=== PATIENT | female | born 1930 | race Caucasian/White ===

== ENCOUNTER 2017-03-11 08:47 | Inpatient (IN) | payer MEDICARE, MEDICAID ==
[~2017-03-11] VITALS: Ht 170.2 cm; Wt 77.8 kg
[2017-03-11] VITALS (7 sets, daily range): BP systolic 51–77; BP diastolic 31–45; PULSE 56–81; RESP 17–24; O2SAT 98–100
[~2017-03-11 08:47] MED LIST: ALBU18HF INH; ASPI-973 PO; CALC500T9 PO; CEPH-512 PO; LEVO150T5 PO; LIDO30CR19 TOP; LORA1TAB PO; METO25TA6 PO; NEPHVIT PO; ROPI0.252 PO; SEVE800T7 PO
--- NOTE | 2017-03-11 09:01 | ED.REPORT ---
HPI-Trauma Minor / Fall Date of Service March 11, 2017 ED Provider: Kaleb Park MD 86 year old female who is a heavy everyday smoker with a history of ESRD on hemodialysis, CHF, COPD, and HTN presents to the ER via EMS accompanied by caregiver due to altered mental status and ground level fall. Caregiver reports that patient was scheduled for dialysis this morning. When she called the patient this morning there was no answer, and she found the patient on the floor upon her arrival at the patient's residence. Patient informed her caregiver that she had fallen out of bed and had been down, unable to get up for over an hour. She denies head or neck trauma, other injures secondary to the fall, GI bleeding, and any anticoagulant use. Over the past week the patient has missed several dialysis appointments because she "didn't want to go ", which is abnormal per physician credentialing specialist. Last week she was complaining of abdominal pain and constipation. This morning she took two Ativan. Nursing Notes Stated Complaint: GLF Chief Complaint: General Complaint Nursing Notes Reviewed: Yes Allergies: Coded Allergies: ROLAND Inhibitors (Verified Allergy, Severe, Anaphylaxis, 11/26/14) Sulfa (Sulfonamide Antibiotics) (Verified Allergy, Severe, itching, 11/26/14 ) amlodipine (Verified Allergy, Severe, Rash,Itching,, 11/26/14) codeine (Verified Allergy, Severe, Shortness of Breath, 11/26/14) morphine (Verified Allergy, Severe, body feels like its on fire, 11/26/14) hydrochlorothiazide (Verified Allergy, Intermediate, Rash,Itching,, 11/26/14 ) sulfadiazine (Verified Allergy, Unknown, 08/31/16) Uncoded Allergies: chloraprep (Allergy, Unknown, 08/31/16) Scheduled Aspirin (Aspirin) 81 Mg Tablet 81 MG PO DAILY Calcium Carbonate (Tums) 500 Mg Tab.chew 1,500 MG PO TIDWM Calcium Carbonate (Tums) 500 Mg Tab.chew 1,000 MG PO HS Cephalexin (Keflex) 500 Mg Capsule 500 MG PO BID Levothyroxine (Levothyroxine) 150 Mcg Tablet 175 MCG PO DAILY Lidocaine/Prilocaine (Lidocaine-Prilocaine Cream) 30 Gm Cream..g. 1 APPLIC TOP AC dialysis to fistu Metoprolol Tartrate (Metoprolol Tartrate) 25 Mg Tablet 25 MG PO BID Sevelamer Carbonate (Renvela) 800 Mg Tablet 1,600 MG PO TIDWM Vitamin B Complex/Vit C (Elinor-Jaun Tablet) 1 Tab Tab 1 TAB PO DAILY Scheduled PRN Albuterol Sulfate (Ventolin HFA Inhaler) 200 Puff/18 Gm Inhaler 2 PUFF INH Q4 PRN PRN For Wheezing Lorazepam (Lorazepam) 1 Mg Tablet 1 MG PO before dialysis PRN PRN dialysis 30 minutes prior to dialysis Ropinirole (Ropinirole) 0.25 Mg Tablet 0.25-0.5 MG PO HS PRN PRN Restless Leg General Time Seen by MD: 08:51 Chief Complaint Fall Hx Obtained From: Patient, [employer] Arrived By: Ambulance Onset Occurred: Just prior to arrival Symptom Duration: Since onset Caused by: Accidental, Fall on ground Context: Occurred at: Home injury Similar Sx Previous: Yes Past Medical History Past Medical History ESRD on hemodialysis High cholesterol Thyroid disease GERD CHF HTN COPD Restless leg syndrome Past Surgical History Fistula Cholecystectomy Family History Noncontributory Smoking History Current Every Day Smoker, Heavy Tobacco Smoker Social History Alcohol Use: Denies alcohol use Drug Use: Denies drug use Other Social History: Lives alone, Local resident Ambulatory Status Walker Review of Systems It is difficult to obtain ROS from the patient due to altered mental status. Musculoskeletal: Denies: Back pain, Extremity pain, Joint pain, Lumbar pain, Neck pain, Thoracic pain Neurologic: Denies: Headache Complete sys rev & neg: except as marked. GI: Denies: Hematemesis, Hematochezia Physical Exam Physical Exam Notes: Initial Vital Signs Vital Signs (First) Date Time Temp Pulse Resp B/P Pulse Ox O2 Delivery O2 Flow Rate FiO2 03/11/17 08:52 36.8 66 17 65/45 98 Room Air 03/11/17 09:55 2 Initial VS: Reviewed Head / Eyes: Atraumatic, Normocephalic Extremities: Vascular intact, Neuro intact, No swelling, No tenderness General/Constitutional: Well developed Alertness: Positive: Somnolent Neck: Atraumatic, Supple, Full range of motion, No swelling, Non-tender, No midline vertebral tend ENT: Airway patent, Pharynx NL Mouth: Positive: Mucous membranes dry Blood around the mouth. Respiratory / Chest: No respiratory distress, No rales, No rhonchi, No chest tenderness, No chest wall deformity Wheezing / Retractions: Positive: Wheeze insp/exp diffuse, Wheezing moderate Cardiovascular: Heart rate NL, Regular rhythm Heart Sounds / Murmur: Positive: Murmur present... (holosystolic murmur left uper sternal border) Diffuse lower extremity edema, non-pitting, equal bilaterally. Abdomen: Atraumatic, Soft, Non-tender, No guarding, No rebound, No distention Back: Full range of motion, No midline vertebral tend Upper Extremity / MS: Full range of motion, Neurologic intact, Vascular intact Right upper extremity fistula Superficial ulcer of her left upper extremity Skin: Warm, Dry, Intact Rash / Lesion Notes: Hyperpigmented areas in lattice like configuration on her back, abdomen, bilateral upper extremities. Neurologic: Oriented X3, Speech NL, No motor deficits, No sensory deficits Rectum / Perineum: Blood - occult heme -, No gross blood Interpretation & Diagnostics Lab Results Interpretation Result Diagram: 03/11/17 1110 03/11/17 0930 Test 03/11/17 09:30 03/11/17 10:51 03/11/17 11:10 White Blood Count 6.1th/mm3 (3.8-10.1) Red Blood Count 3.53mil/mm3 (3.90-5.20) Mean Corpuscular Volume 98.0fL (81-100) Mean Corpuscular Hemoglobin 32.3pg (27.0-35.0) Mean Corpuscular Hemoglobin Concent 32.9% (32.0-37.0) Red Cell Distribution Width 16.6% (12.3-15.4) Platelet Count 95bil/L (150-400) Neutrophils (%) (Auto) 82.8% (40-74) Lymphocytes (%) (Auto) 9.0% (14-46) Monocytes (%) (Auto) 6.9% (4-12) Eosinophils (%) (Auto) 0.3% (0-5) Basophils (%) (Auto) 0.3% (0-3) Prothrombin Time 11.3sec (8.1-12.5) Prothromb Time International Ratio 1.05ratio Activated Partial Thromboplast Time 27.6sec (22.8-33.0) Sodium Level 135mEq/L (134-144) Potassium Level 3.5mEq/L (3.5-5.2) Chloride Level 94mEq/L (97-108) Carbon Dioxide Level 19mmol/L (18-29) Blood Urea Nitrogen 28mg/dL (8-27) Creatinine 4.77mg/dL (0.57-1.00) Estimat Glomerular Filtration Rate 12mL/min (>59) Glucose Level 97mg/dL (60-99) Lactic Acid Level 1.5mmol/L (0.4-2.0) Calcium Level 7.8mg/dL (8.5-10.1) Magnesium Level 1.5mg/dL (1.6-2.6) Total Bilirubin 0.6mg/dL (0.0-1.2) Aspartate Amino Transf (AST/SGOT) 13U/L (0-50) Alanine Aminotransferase (ALT/SGPT) 8U/L (0-32) Alkaline Phosphatase 57U/L (25-165) Troponin T 0.397ug/L (0.0-0.011) Total Protein 6.5g/dL (6.4-8.4) Albumin 3.5g/dL (3.4-5.0) Thyroid Stimulating Hormone (TSH) 39.140uIU/mL (0.450-4.500) Urine Color Yellow (YELLOW) Urine Appearance Turbid (CLEAR,HAZY) Urine pH 8.0 (5.0-8.0) Urine Specific Willits 1.020 (1.003-1.035) Urine Protein 300mg/dL (NEG,TRACE) Urine Glucose (UA) Negativemg/dL (NEGATIVE) Urine Ketones Negativemg/dL (NEGATIVE) Urine Occult Blood Large (NEGATIVE) Urine Nitrite Positive (NEGATIVE) Urine Bilirubin Negative (NEGATIVE) Urine Urobilinogen Normalmg/dL (NORMAL) Urine Leukocyte Esterase Moderate (NEGATIVE) Urine RBC 11-50/hpf (0-2) Urine WBC Packed/hpf (0-5) Urine Epithelial Cells Occasional/hpf (NONE-MOD) Urine Crystals None seen (NONE SEEN) Urine Bacteria Moderate/hpf (NONE-FEW) Urine Hyaline Casts None/lpf (NONE) Urine Granular Casts None seen (NONE SEEN) Urine Waxy Casts None seen (NONE SEEN) Urine Red Blood Cell Casts None seen (NONE SEEN) Urine White Blood Cell Casts None seen (NONE SEEN) Urine Mucus None seen (None Seen) Urine Trichomonas None seen (NONE SEEN) Urine Yeast None (NONE SEEN) Urinalysis Comment None Urine Culture Reflexed Indicated Hemoglobin 11.3g/dL (12.0-15.6) Hematocrit 34.8% (35.0-46.0) ECG Interpretation ECG Interpretation: Sinus rhythm, rate 66 T wave inversions in 1, avL, unchanged from previous Q waves in avR and v1, also unchanged from previous No other ST T changes Time: 09:24 Interpreted by: ED physician X-Ray Chest Interpretation Chest Xray Interpretation: IMPRESSION: Cardiomegaly and moderate vascular congestion. Superimposed viral bronchiolitis is difficult to exclude. Dictated by: Fran Bolivar M.D. on 03/11/2017 at 9:11 Approved by: Fran Bolivar M.D. on 03/11/2017 at 9:12 View: Portable, 1 view Interpretation / Wet Read by: Interpret - Radiologist CT Head Interpretation IMPRESSION: No acute intracranial process Dictated by: Huan Allen M.D. on 03/11/2017 at 9:36 Approved by: Huan Allen M.D. on 03/11/2017 at 9:38 Study: Head CT no contrast Interpretation / Wet Read by: Interpret - Radiologist Re-Eval/Medical Decision Med Decision/Clinical Course 86-year-old female history of end-stage renal disease on dialysis presenting with altered mental status. Patient with altered mental status since this morning per caregiver. She may have taken some Ativan. She has not been going to her dialysis this week. On arrival patient was altered but arousable. Her blood pressures started to drop with maps in the 30s. Urine suggestive of urosepsis. Her lactate is normal. Troponins were elevated with no EKG changes suggestive of NSTEMI. As antibiotics and heparin drip were getting started, son became involved and family decided to make her comfort measures and that this would be her wishes. She had apparently expressed this earlier. Critical care time as below. Admitted after change in goals of care on comfort measures. Source of Hx: Old records Re-Evaluation/Progress #1: Time of Eval: 10:32 Re-Evaluation/Progress Note: Patient continues to be somnolent. Discussed patient case with family members who are now present. They understand and acknowledge the severity of the patient's condition. Patient's code status is DNAR. Discussed lab and imaging results and need for admission. Family is amenable to the plan. All other questions addressed. Re-Evaluation/Progress #2: Time of Eval: 11:48 Re-Evaluation/Progress Note: Family decided comfort care after initial interventions. Consultation #1: Referral / Consult Name: Dorian Argueta MD Consulted With: Cardiology Call Returned at: 11:05 Paperhanger Supervisor: Will see patient Note: Discussed patient case with Dr. Argueta, Cardiology, who is now present in the department. Recommends echocardiogram and heparin drip. Consultation #2: Referral / Consult Name: Arpita Rubio MD Consulted With: Nephrology Call Returned at: 11:14 Note: Dr. Rubio does not recommend urgent dialysis. Consultation #3: Referral / Consult Name: William Canales DO Consulted With: Hospitalist Paperhanger Supervisor: Agrees with eval, Agrees with plan, Accepts admit Counseled Regarding: Diagnosis, Lab results, Need for admission Discharge & Departure Impression: Primary Impression: Hypotension Additional Impressions: Sepsis NSTEMI (non-ST elevated myocardial infarction) UTI (urinary tract infection) Disposition: ADMITTED TO HOSPITAL Discharge Condition All VS Reviewed: Yes Condition: Critical Referrals: Mercedes Brady MD (PCP) Crit Care Except Billable Proc Time Spent: 30-74 minutes (52) Services Performed: Patient management by me, Time spent at bedside, Reviewing test results, Reviewing imaging, Discussing patient care, Documentation in record, Time with fam/surrogate Scribe Attestation Portions of this note were transcribed by Hattie Jones. I, Dr. Park, personally performed the history, physical exam and medical decision-making; I reviewed and confirmed the accuracy of the information in the transcribed note. Signed by: Gab Burciaga, 03/11/2017 at 12:39 copies to: Mercedes Brady MD, Ben M MD March 11, 2017 09:01 HATTIE JONES March 11, 2017 09:08
[2017-03-11] MEDS ORDERED: 0.9% Sodium Chloride 500 ML IV ONE ×2 (09:13→10:20)
[2017-03-11] MEDS ORDERED: Pantoprazole 4 mg/mL 10 mL Inj IVPUSH ONE (09:15)
--- NOTE | 2017-03-11 09:40 | DRSVH ---
PROCEDURE: CT BRAIN WITHOUT CONTRAST ([id number]) INDICATIONS: altered mental status TECHNIQUE: Noncontrast 4.5 mm thick angled axial sections acquired from the foramen magnum to the vertex, with c oronal reformats. COMPARISON: [facility], CT, CT BRAIN WO CON, 08/31/2016, 13:45. FINDINGS: Image quality: Excellent. CSF spaces: Basal cisterns are patent. No extra-axial fluid collections. The ventricles are symmet kaleb in size and shape. Brain: No intracranial bleeds or masses. Unchanged right basal ganglia calcification There is cerebr al volume loss for age, with resultant ventricular and sulcal prominence. There are periventricular and deep white matter chronic small vessel ischemic changes. There is intracranial internal carotid artery atherosclerosis. Skull and face: Calvarium and visualized facial bones appear intact, without suspicious lesions. Sinuses: Visualized sinuses and mastoids are clear. IMPRESSION: No acute intracranial process Dictated by: Huan Allen M.D. on 03/11/2017 at 9:36 Approved by: Huan Allen M.D. on 03/11/2017 at 9:38
[2017-03-11 09:58] LABS: BASOPHILS % (AUTO) 0.3 % (0-3); EOSINOPHILS % (AUTO) 0.3 % (0-5); MONOCYTES % (AUTO) 6.9 % (4-12); Mean Corpuscular Hemoglobin 32.3 pg (27.0-35.0); NEUTROPHILS % (AUTO) 82.8 % (40-74); Platelet Count 95 bil/L (150-400)
[2017-03-11 10:13] LABS: INR 1.05 ratio
--- NOTE | 2017-03-11 10:14 | DRSVH ---
PROCEDURE: X-RAY CHEST ONE VIEW, PORTABLE ([id number]) INDICATIONS: cough TECHNIQUE: One view of the chest was acquired. COMPARISON: [facility], CR, XR CHEST 1VW (PORTABLE), 08/31/2016, 10:00. FINDINGS: Surgical changes and devices: None. Lungs and pleura: There is hilar prominence present. Aeration of the lungs is similar to the prior s tudy. No lobar consolidation, large effusion, or pneumothorax is evident. Mediastinum: Mediastinal contours appear normal. Heart size is mildly enlarged. There is aortic at herosclerosis. Bones and chest wall: No suspicious bony lesions. Overlying soft tissues appear unremarkable. IMPRESSION: Cardiomegaly and moderate vascular congestion. Superimposed viral bronchiolitis is difficult to excl ude. Dictated by: Fran Bolivar M.D. on 03/11/2017 at 9:11 Approved by: Fran Bolivar M.D. on 03/11/2017 at 9:12
[2017-03-11 10:35] LABS: TROPONIN T 0.397 ug/L (0.0-0.011)
[2017-03-11] MEDS ORDERED: Piperacillin-Tazo 3.375 Gm Inj 3.375 GM in Dextrose 5% Minibag Plus 50 ML IV ONE (10:45)
[2017-03-11] MEDS ORDERED: 0.9% Sodium Chloride 1,000 ML IV ONE (10:45)
[2017-03-11 10:51] LABS: Magnesium 1.5 mg/dL (1.6-2.6)
[2017-03-11 11:09] LABS: APPEARANCE,URINE TURBID (CLEAR,HAZY); COLOR,URINE YELLOW (YELLOW); OCCULT BLOOD,URINE LARGE (NEGATIVE)
[2017-03-11 11:10] LABS: UROBILINOGEN,URINE NORMAL (NORMAL)
[2017-03-11] MEDS ORDERED: Heparin 25K Unit/500mL 0.45 NS 25,000 UNIT in IV Premix 1 EACH IV ONE (11:15)
[2017-03-11] MEDS ORDERED: Heparin 5,000 Unit/mL Inj IVPUSH ONE (11:15)
[2017-03-11] MEDS ORDERED: Albuterol-Ipratropium 3 mL Inhalation Solution ONE (11:42)
[2017-03-11] MEDS ORDERED: Ondansetron 2 mg/mL 2 mL Inj IVPUSH PRN ×2 (12:55→14:35)
[2017-03-11] MEDS ORDERED: Alum-Mag Hydrox-Simeth 30 mL Suspension PO PRN (12:55)
--- NOTE | 2017-03-11 13:26 | CONS ---
[address] [address] CONSULTATION REPORT PATIENT: YIFAN MOREL : 1930 MR#: [id number] ADMIT: 03/11/2017 JOB ID: [id number] DATE OF SERVICE: 03/11/2017 CRITICAL CARE CARDIOLOGY CONSULTATION: REASON FOR CONSULT: ED physician, Dr. Manuel, asked me to see this patient regarding hypotension, fall, altered mental status. I went to the ED and saw the patient. CHIEF COMPLAINT: Had a fall. The patient is slowly responding, however, she is confused. The majority of the history I got through the current chart, reviewing old records, talking to the niece as well as the ED physician. PRESENT HISTORY: This 86-year-old pleasant female, who has a history of end-stage renal disease on hemodialysis three times a week, status post left heart catheterization in November 2014. At that time, she did not have any significant left main, LAD or circ disease with 30%-40% mid RCA disease, LV ejection fraction 55%-60% with [id number] MR based on echocardiogram done February 2015, history of essential hypertension, persistent tobacco abuse, COPD, hypothyroidism, GERD, restless legs syndrome, history of CHF was brought to the ED because of above-mentioned chief complaint. According to the niece, the patient missed dialysis a couple of times. However, yesterday she had dialysis. She was supposed to have dialysis today as well. This morning, when the caregiver went to her house, she found her on the floor. According to the patient, she fell from the bed. She denies any active chest pain or preceding palpitation or dizziness or cardiovascular symptoms. However, that history is not very reliable. In the ED the patient was found to be hypotensive. She was started on IV fluids. Cardiology consult was sought. At present, she is in emergency department. She is kind of sleeping but she is responding to commands slowly. However, she appears to be confused. She is not having any active chest pain. No obvious fever, chills. According to the nurse, her urine was very turbid and looks like she has a urinary tract infection. PAST MEDICAL HISTORY: 1. 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 2. End-stage renal disease on hemodialysis. 3. Essential hypertension. 4. Hyperlipidemia. 5. GERD. 6. History of CHF. 7. COPD. 8. Tobacco abuse. 9. Restless legs syndrome. 10. Hypothyroidism. 11. Right AV fistula. PAST SURGICAL HISTORY: 1. Cholecystectomy. 2. Right AV fistula. ALLERGIES: The patient is allergic to ROLAND INHIBITOR with anaphylaxis, SULFA, AMLODIPINE, CODEINE, MORPHINE, HYDROCHLOROTHIAZIDE, SULFADIAZINE. MEDICATION AT HOME: 1. Aspirin 81 mg daily. 2. Calcium carbonate. 3. Synthroid 150 mcg tablet, 175 mcg daily. 4. Metoprolol tartrate 25 mg b.i.d. 5. Renvela 1600 mg t.i.d. 6. Vitamin B complex. SOCIAL HISTORY: The patient is a chronic smoker. FAMILY HISTORY: Noncontributory. REVIEW OF SYSTEMS: I tried to obtain 10 point review of systems but the validity is not very reliable as she appears to be confused. PHYSICAL EXAMINATION: Blood pressure 69/35, heart rate 63, oxygen saturation on 2 L 98%. HEENT: No significant anemia or jaundice. Neck: Neck vein appears to be engorged. Chest: Bilateral diffuse rhonchi as well as some crackles at the bases. CVS: S1 appears normal. P2 appears prominent. No obvious S3-S4. Grade 2/6 ejection systolic murmur at the base. Abdomen appears to be obese. During my physical examination, I found tenderness in middle of the abdomen. It is not a rebound tenderness. Extremities: The patient has diffuse erythematous changes. 1-2+ pedal edema. Feeble distal pulses. She has a blister on the anterior aspect of left thigh and some rashes on her back on the left side. HOST COORDINATOR: As stated above. Vascular: As stated above. However, at present, no obvious critical limb ischemia. LABORATORIES: WBC 6.1, hemoglobin 11.4, platelets 95, polymorphs 82.8. INR 1.05. Sodium 135, potassium 3.5, BUN 28, creatinine 4.77. Bilirubin, AST, ALT normal. Troponin T 0.397. However, the patient has chronically elevated troponin. In November of 2014, it was 0.252. IMAGING: The patient has CT scan of her head which did not reveal any acute process. On x-ray chest, mild cardiomegaly. Aortic atherosclerosis. Moderate vascular congestion. EKG today revealed sinus rhythm with LVH with left anterior fascicular block with some nonspecific ST-T changes and QTc 481 msec which has unchanged from previous EKG. The patient had carotid Doppler in November 2010. 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 ASSESSMENT/PLAN: Profound hypotension. In the past she did not have any critical coronary artery disease. LV function was preserved. On my physical examination, she does not have any very cold clammy extremities. Clinically, no obvious pulsus paradoxus. With low blood pressure, I will expect some tachycardia. However, she is not tachycardic. Clinically, she is having bilateral wheezing. She has bilateral basal crepitations. At this point of time, she will need workup to rule out cardiac etiology as well as infectious etiology and endocrine abnormality like adrenal insufficiency. I had a long discussion with the patient's niece who is at bedside and the ED physician as well. We discussed about above-mentioned workup including echocardiogram, vasopressor support, etc. However, at present, niece told us that the patient's code status is DNR. She is talking to her brother as well who is in [place] who is the son of the patient. They are thinking about comfort care. If they decide to go forward, will recommend echocardiogram and consideration of Levophed and close hemodynamic monitoring along with serial CPK, troponin. On the EKG, I do not see any new EKG changes suggestive of significant ischemia or infarction. However, troponin abnormal which is chronically elevated in the face of end-stage renal disease. With an echocardiogram, we would also like to rule out pericardial pathology. Sage understands. However, at present, she is not interested to go forward. Thanks for the cardiology consult. TOTAL TIME SPENT: For this critical care consult including reviewing old records about 70 minutes. MARYELLEN
--- NOTE | 2017-03-11 14:23 | PCM.HPMED ---
Subjective Date of Service March 11, 2017 Primary Provider: Admitting Physician: William Canales DO Primary Care Physician: Mercedes Brady MD Attending Physician: William Canales DO Chief Complaint: Hypotension, found down History of Present Illness: 86-year-old female with significant history of tobacco abuse, end-stage renal disease with history of noncompliance with dialysis sessions missing her last 2 , CHF, COPD and hypertension presenting to the ER via EMS with altered mental status being found by caregiver on the floor with reports of being on the floor for 1 hour. Recent has not wanted to go dialysis appointments of late when discussing with her niece. Patient's first listed power of regulatory attorney is her son in [place]. Phone number [phone]. Patient was found to be hypotensive in the ER with systolics in the 60s, as she was consulted and discussions were held regarding goals of care, family decided patient should be comfort care and was admitted as such. No significant EKG findings for acute ischemia were noted, patient was taking Ativan at home prior to ground level fall at home. Upon interview, niece reaffirmed desire for comfort care and stated she is in agreement with the other POA, Terrell. Review of Systems: Review of systems unable to be obtained due to patient's mental state Allergies Coded Allergies: ROLAND Inhibitors (Verified Allergy, Severe, Anaphylaxis, 11/26/14) Sulfa (Sulfonamide Antibiotics) (Verified Allergy, Severe, itching, 11/26/14 ) amlodipine (Verified Allergy, Severe, Rash,Itching,, 11/26/14) codeine (Verified Allergy, Severe, Shortness of Breath, 11/26/14) morphine (Verified Allergy, Severe, body feels like its on fire, 11/26/14) hydrochlorothiazide (Verified Allergy, Intermediate, Rash,Itching,, 11/26/14 ) sulfadiazine (Verified Allergy, Unknown, 08/31/16) Uncoded Allergies: chloraprep (Allergy, Unknown, 08/31/16) Home Medications Aspirin (Aspirin) 81 Mg Tablet 81 MG PO DAILY Calcium Carbonate (Tums) 500 Mg Tab.chew 1,500 MG PO TIDWM Calcium Carbonate (Tums) 500 Mg Tab.chew 1,000 MG PO HS Cephalexin (Keflex) 500 Mg Capsule 500 MG PO BID Levothyroxine (Levothyroxine) 150 Mcg Tablet 175 MCG PO DAILY Lidocaine/Prilocaine (Lidocaine-Prilocaine Cream) 30 Gm Cream..g. 1 APPLIC TOP AC dialysis to fistu Metoprolol Tartrate (Metoprolol Tartrate) 25 Mg Tablet 25 MG PO BID Sevelamer Carbonate (Renvela) 800 Mg Tablet 1,600 MG PO TIDWM Vitamin B Complex/Vit C (Elinor-Jaun Tablet) 1 Tab Tab 1 TAB PO DAILY PMH ESRD on hemodialysis High cholesterol Thyroid disease GERD CHF HTN COPD Restless leg syndrome Surgical History Fistula Cholecystectomy Family History Noncontributory Social History Hx Alcohol Use: No Hx Substance Use: No Hx Tobacco Use: Yes (Between 5-10 cigarettes daily) Smoking Status: Current Every Day Smoker, Heavy Tobacco Smoker Exam Vital Signs Vital Sign - Last Date Time Temp Pulse Resp B/P Pulse Ox O2 Delivery O2 Flow Rate FiO2 03/11/17 13:31 36.1 65 20 72/39 100 Nasal Cannula 2.00 Exam Gen.: Unarousable, sleeping/snoring, no acute distress HEENT: Normocephalic/atraumatic, pupils equal round react to light and accommodation,EOMI, Anicteric sclera, No mucosal ulcerations Neck: No JVD, lymphadenopathy, no thyromegaly Cardiovascular: Systolic murmur at left upper sternal border, regular rate Respiratory: Coarse breath sounds bilaterally, intermittent wheezes in upper lobes bilaterally GI: Soft, nontender to palpation no masses no hepatosplenomegaly Extremities: 2+ edema bilaterally, show me his cool to touch, decreased pulses at health pedis Neurologic, unable to evaluate Psych: Unarousable, unable to evaluate Lab and Diagnostics Result Diagram: 03/11/17 1110 03/11/17 0930 X-Rays, CTs and MRIs Negative head CT Chest ray with evidence of pulmonary vascular congestion 12-lead ECG Sinus rhythm, No acute ischemia, left axis deviation with early repolarization noted Cardiac Echo Impressions Deferred Assessment & Plan 86-year-old female was ground-level fall and altered mental status reported to be found down for approximately an hour, likely longer with significant hypotension on admission with systolics in the 60s now increased his 70s. Family wanting to pursue comfort care at this time without further infectious/ cardiac/pulmonary workup or aggressive interventions Altered mental status, possibly secondary to missed dialysis sessions albeit no significant x-ray abnormalities but worsened with likely underlying pulmonary edema causing hypoxia plus or minus aspiration and exacerbated by hypotension -We will consult hospice services -Morphine, oxygen, scopolamine, Ativan when necessary -Appreciate critical care evaluation, we will defer further imaging and ultrasound/echo given goals of care Chronic medical conditions: ESRD on hemodialysis High cholesterol Thyroid disease GERD CHF HTN COPD Restless leg syndrome CODE STATUS DO NOT RESUSCITATE Pain Evaluation: Adequate Pain Control VTE Prophylaxis: Other (Comfort Care only) Resuscitation Status: DNR/DNI:Do Not Resuscitate/Intubate Time spent 40 minutes spent with admission, coordination of care and patient management. William Canales DO March 11, 2017 14:23
[2017-03-11] MEDS ORDERED: MetoCLOpramide 5 mg/mL 2 mL Inj IVPUSH PRN (14:35)
--- NOTE | 2017-03-11 17:40 | NUR ---
Admit Pt admitted to [facility] from ER at around 1500ish. Family at the bedside. MD paged and rounded. Pt pretty somulent and moans when turning. BP low at 51/31 and paged. HR 50's, Irregular breathing at 18 on 2L NC 100%. Admit completed in the ER by admit RN.
[2017-03-12 00:17] VITALS: BP 78/48; PULSE 67; RESP 18; O2SAT 98
--- NOTE | 2017-03-12 04:58 | NUR ---
mentation / skin Rousable to verbal stimuli and sternal rub, falls back asleep quickly. by mid shift patient responding to verbal stimuli and opening eyes. Answered "hospital" when asked if she knew where she was. Opens eyes for a few seconds and falls back asleep. Denies pain/discomfort. Frequent turning thru the NOC, elbows, heels, buttocks, back are all red, non-blanchable. positioned side to side w/ pillows for support. Left thigh w/ 1 open area (dry blister) and 1 intact blister. Wearing attends, has not voided, does not make much urine per her granddaughter who was visiting at bedside. skin care provided, oral care for dry mucosa. continues w/ NPO status. chin hair shaved and face washed. desats to mid 80's w/ turning in bed. recovers quickly. cpox in place. b/p remains low 77/41. CTM for changes.
[2017-03-12 05:40] VITALS: BP 70/47; PULSE 71; RESP 18; O2SAT 98
--- NOTE | 2017-03-12 08:32 | PCM.CONPAL ---
Date of Service March 12, 2017 Date of Hospital Admission: March 11, 2017 at 12:30 Pt History History of Present Illness 86-year-old female with significant history of tobacco abuse, end-stage renal disease with history of noncompliance with dialysis sessions missing her last 2 , CHF, COPD and hypertension presenting to the ER via EMS with altered mental status being found by caregiver on the floor with reports of being on the floor for 1 hour. Recent has not wanted to go dialysis appointments of late when discussing with her niece. Patient's first listed power of real estate associate attorney is her son in [place]. Phone number [phone]. Patient was found to be hypotensive in the ER with systolics in the 60s, as she was consulted and discussions were held regarding goals of care, family decided patient should be comfort care and was admitted as such. No significant EKG findings for acute ischemia were noted, patient was taking Ativan at home prior to ground level fall at home. Upon interview, niece reaffirmed desire for comfort care and stated she is in agreement with the other POA, Terrell. Past Medical History Significant PMH Noted: 1. 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 2. End-stage renal disease on hemodialysis. 3. Essential hypertension. 4. Hyperlipidemia. 5. GERD. 6. History of CHF. 7. COPD. 8. Tobacco abuse. 9. Restless legs syndrome. 10. Hypothyroidism. 11. Right AV fistula. PAST SURGICAL HISTORY: 1. Cholecystectomy. 2. Right AV fistula. ALLERGIES: The patient is allergic to ROLAND INHIBITOR with anaphylaxis, SULFA, AMLODIPINE, CODEINE, MORPHINE, HYDROCHLOROTHIAZIDE, SULFADIAZINE. SOCIAL HISTORY: The patient is a chronic smoker. FAMILY HISTORY: Noncontributory. Medications Current Medications: Current Medications Al Hydrox/Mg Hydrox/Simethicone 30 ml Q6 PRN PO; Start 03/11/17 at 12:55; Stop 03/11/17 at 14:41; Status DC Ondansetron HCl Dose range: 4 mg to 8 mg Q4H PRN IVPUSH; Start 03/11/17 at 12: 55; Stop 03/11/17 at 14:40; Status DC Acetaminophen 975 mg Q6H PRN PO; Start 03/11/17 at 12:55; Stop 03/11/17 at 14: 41; Status DC Metoclopramide HCl 5 mg Q6H PRN IVPUSH; Start 03/11/17 at 14:35 Ondansetron HCl Dose Range: 4 mg to 8 mg Q4H PRN IVPUSH; Start 03/11/17 at 14: 35 Diphenhydramine HCl Dose Range: 12.5 mg... Q4H PRN IVPUSH; Start 03/11/17 at 14 :35 Hydromorphone HCl 1 mg Q2H PRN IVPUSH; Start 03/11/17 at 14:35 Scopolamine 1.5 mg Q72H PRN TOPICAL; Start 03/11/17 at 14:35 Scheduled Aspirin (Aspirin) 81 Mg Tablet 81 MG PO DAILY Calcium Carbonate (Tums) 500 Mg Tab.chew 1,500 MG PO TIDWM Calcium Carbonate (Tums) 500 Mg Tab.chew 1,000 MG PO HS Cephalexin (Keflex) 500 Mg Capsule 500 MG PO BID Levothyroxine (Levothyroxine) 150 Mcg Tablet 175 MCG PO DAILY Lidocaine/Prilocaine (Lidocaine-Prilocaine Cream) 30 Gm Cream..g. 1 APPLIC TOP AC dialysis to fistu Metoprolol Tartrate (Metoprolol Tartrate) 25 Mg Tablet 25 MG PO BID Sevelamer Carbonate (Renvela) 800 Mg Tablet 1,600 MG PO TIDWM Vitamin B Complex/Vit C (Elinor-Jaun Tablet) 1 Tab Tab 1 TAB PO DAILY Scheduled PRN Albuterol Sulfate (Ventolin HFA Inhaler) 200 Puff/18 Gm Inhaler 2 PUFF INH Q4 PRN PRN For Wheezing Lorazepam (Lorazepam) 1 Mg Tablet 1 MG PO before dialysis PRN PRN dialysis 30 minutes prior to dialysis Ropinirole (Ropinirole) 0.25 Mg Tablet 0.25-0.5 MG PO HS PRN PRN Restless Leg Objective Findings Exam Vital Sign - Last Date Time Temp Pulse Resp B/P Pulse Ox O2 Delivery O2 Flow Rate FiO2 03/12/17 05:40 36.4 71 18 70/47 98 Nasal Cannula 2.00 Intake and Output 03/11/17 03/11/17 03/12/17 Cumulative From/Thru 15:00 23:00 07:00 03/10/17 20:00 - 03/12/17 06:31 Intake Total 2000 ml 0 ml 0 ml 2000 ml Output Total 0 ml 0 ml 0 ml Balance 2000 ml 0 ml 0 ml 2000 ml Intake Oral 0 ml 0 ml 0 ml IV Total 2000 ml 2000 ml Output Urine Total 0 ml 0 ml 0 ml Lab/Diagnostics Lab and Imaging results reviewed in detail in EMR. Time spent Total time [ ] minutes; >50% face to face with patient and/or family, providing counselling regarding plans and recommendations, and in care coordination with his/her medical teams. I also spent an additional [ ] minutes counseling for advanced care planning with the patient/the patients family/the surrogate decision maker. Saskia Pedroza MD March 12, 2017 08:32
--- NOTE | 2017-03-12 10:22 | PCM.PNMED ---
Subjective Date of Service March 12, 2017 Subjective Patient with systolics in the 70s overnight, moderately more alert this morning responding with mumbling to my questions. Denies pain. Appreciate particular recommendations., Son Terrell acosta POA has been contacted by myself today and will be flying here tomorrow from [facility]. He is hoping to get an update from the medical team tomorrow as well. Exam Vital Signs Vital Sign - Last Date Time Temp Pulse Resp B/P Pulse Ox O2 Delivery O2 Flow Rate FiO2 03/12/17 05:40 36.4 71 18 70/47 98 Nasal Cannula 2.00 Intake and Output 03/11/17 03/11/17 03/12/17 Cumulative From/Thru 15:00 23:00 07:00 03/10/17 20:00 - 03/12/17 06:31 Intake Total 2000 ml 0 ml 0 ml 2000 ml Output Total 0 ml 0 ml 0 ml Balance 2000 ml 0 ml 0 ml 2000 ml Intake Oral 0 ml 0 ml 0 ml IV Total 2000 ml 2000 ml Output Urine Total 0 ml 0 ml 0 ml Exam Gen.: Unarousable, sleeping/snoring, no acute distress HEENT: Normocephalic/atraumatic, pupils equal round react to light and accommodation,EOMI, Anicteric sclera, No mucosal ulcerations Neck: No JVD, lymphadenopathy, no thyromegaly Cardiovascular: Systolic murmur at left upper sternal border, regular rate Respiratory: Coarse breath sounds bilaterally, intermittent wheezes in upper lobes bilaterally GI: Soft, nontender to palpation no masses no hepatosplenomegaly Extremities: 2+ edema bilaterally, show me his cool to touch, decreased pulses at health pedis Neurologic, unable to evaluate Psych: Unarousable, unable to evaluate IVs and Medications Medications Reviewed: Medications were reviewed in detail Lab and Diagnostics Result Diagram: 03/11/17 1110 03/11/17 0930 X-Rays, CTs and MRIs Negative head CT Chest ray with evidence of pulmonary vascular congestion 12-lead ECG Sinus rhythm, No acute ischemia, left axis deviation with early repolarization noted Cardiac Echo Impressions Deferred Assessment & Plan 86-year-old female was ground-level fall and altered mental status reported to be found down for approximately an hour, likely longer with significant hypotension on admission with systolics in the 60s now increased his 70s. Family wanting to pursue comfort care at this time without further infectious/ cardiac/pulmonary workup or aggressive interventions Altered mental status, possibly secondary to missed dialysis sessions albeit no significant x-ray abnormalities but worsened with likely underlying pulmonary edema causing hypoxia plus or minus aspiration and exacerbated by hypotension -consult hospice services - recs appreciated -Morphine, oxygen, scopolamine, Ativan when necessary -Appreciate critical care evaluation, we will defer further imaging and ultrasound/echo given goals of care -Family updated today, son Domingo Tejada phone: [phone] Chronic medical conditions: ESRD on hemodialysis High cholesterol Thyroid disease GERD CHF HTN COPD Restless leg syndrome CODE STATUS DO NOT RESUSCITATE VTE Prophylaxis: Other (Comfort Care only) VTE Mechanical Devices: Intermittant Pneumatic CD Resuscitation Status: DNR/DNI:Do Not Resuscitate/Intubate Time spent 30 minutes spent with eval and mgmt William Canales DO March 12, 2017 10:21
--- NOTE | 2017-03-12 11:21 | NUR ---
Palliative Care Palliative Care received order from Dr Canales 03/12/17 to assist with goals of care. Patient is an 86 year old woman who was admitted 03/11/17. Miguel Liam (son/DPOA) [phone] Bailee Coleman (niece) [phone] Palliative Care to follow. Maribel Hedrick
[2017-03-12] MEDS ORDERED: Haloperidol 5 mg/mL Inj IVPUSH PRN (12:15)
--- NOTE | 2017-03-12 12:38 | PCM.CONPAL ---
Date of Service March 12, 2017 Date of Hospital Admission: March 11, 2017 at 12:30 Date of Palliative Consult: March 12, 2017 Requesting Provider: William Canales DO Reason Palliative Care Consult: Goals of Care Discussion Hospital Unit @time of consult: Orthopedic/Surgical Care Palliative Care Recommendation Summary of palliative recommendations: -Symptom management (Pain/other) EOL discussion- questions answered re goals, what to expect and sx management. Her son is on his way here to see her. Decision to discontinue dialysis-unclear if patient really understands but she states she agrees with this and asks to leave her be. Hypotension with possible sepsis. She has remained remarkably stable for 6 hours. she is comfortable flat in bed. Comfort meds are ordered. Diet liberalized if she should be interested. Reviewed with CM/SS-she may within the next 24 hour. If there is evidence of stability of VS She may be transferred to ECF with eventual onboarding of hospice when they are able to support her. Based on minimal UO and minimal PO intake if this is not sepsis --life expectancy may be more in range of 1-2 weeks. -DPOA/Advanced Directives/POLST--POLST completed to reflect DNR/DNI, comfort DPOAHC available in chart. -Family/emotional support-very good support from her niece. She has good insight due to the loss of her parents within the past 2 yrs. -Spiritual support-has been visited by her airport ramp supervisor. This was also helpful for her niece. Problems: End of Life Preferences DNR/DNI/comfort Disposition probably will here-ECF is also an option if she remains stable. Resuscitation Status Resuscitation Status: DNR/DNI:Do Not Resuscitate/Intubate POLST Updates/Changes Artificially Admin Nutrition: No Artifical Nutrition by Tube POLST Discussed with: Health Care Agent (DPOAHC) POLST Review Outcome: New Form Completed . Advanced Care Planning Address: POLST, Comfort care Pt History History of Present Illness 86-year-old female with significant history of tobacco abuse, end-stage renal disease with history of noncompliance with dialysis sessions missing her last 2 , CHF, COPD and hypertension presenting to the ER via EMS with altered mental status being found by caregiver on the floor with reports of being on the floor for 1 hour. Recent has not wanted to go dialysis appointments of late when discussing with her niece. Patient's first listed power of banking attorney is her son in [place], [place]. Phone number [phone]. Patient was found to be hypotensive in the ER with systolics in the 60s, as she was consulted and discussions were held regarding goals of care, family decided patient should be comfort care and was admitted as such. No significant EKG findings for acute ischemia were noted, patient was taking Ativan at home prior to ground level fall at home. Upon interview, niece reaffirmed desire for comfort care and stated she is in agreement with the other POA, Terrell. History and discussion with Kelly Coleman her niece who has been her main support.She has a CG who takes her to dialysis 3 days a week. Gradual decline in status over the last 1-2 yrs but more acutely in the past 3 months. She has had increasing confusion- out on scooter to [employer] in middle of the night, one time out in her underwear, refusing Meals on Wheels and eating potato chips soda and cheezwiz. She continues to smoke and declines ever going to facility due to restrictions on her just staying in bed watching TV and smoking. She has been spending more time in bed. She has been missing dialysis- for a full week 2 wks ago-no SOB developing. Niece would describe her quality of life as very poor at this point. Having incont of bladder and bowel but refuses depends and doesn't recognize the disaster of her environment. Past Medical History Significant PMH Noted: Past Medical History Significant PMH Noted: 1. Noncritical CAD based on left heart catheterization done in November 2014 with 30%-50% mid RCA, [id number] MR, LV ejection fraction 55%-60%. 2. End-stage renal disease on hemodialysis. 3. Essential hypertension. 4. Hyperlipidemia. 5. GERD. 6. History of CHF. 7. COPD. 8. Tobacco abuse. 9. Restless legs syndrome. 10. Hypothyroidism. 11. Right AV fistula. 12. ASPVD with erica carotid ds 13. Thrombocytopenia/chronic anemia 14. DM2 PAST SURGICAL HISTORY: 1. Cholecystectomy. 2. Right AV fistula. ALLERGIES: The patient is allergic to ROLAND INHIBITOR with anaphylaxis, SULFA, AMLODIPINE, CODEINE, MORPHINE, HYDROCHLOROTHIAZIDE, SULFADIAZINE. SOCIAL HISTORY: The patient is a chronic smoker-ongoing lives in [facility] with assist of CG and her niece coordinating FMHX Brother last yr with stopping dialysis for ESRD Social History Occupation: retired Spiritual Support Spiritual Support received visit from the today Responsive Patient Symptoms Pain (current): None Tiredness/Fatigue: Moderate Nausea: None Depression: None Anxiety: None Drowsiness/Sleepiness: Moderate Shortness of Breath: None Palliative Performance Scale PPS Patient Status: Current PPS Ambulation: Totally Bed PPS Activity: Unable to do any activity PPS Self-Care: Total Care PPS Intake: Minimal to sips PPS Conscious Level: Full or drowsey, +/- confusion Performance Scale: 20% Allergy Allergies Reviewed: Yes Medications Current Medications: Current Medications Al Hydrox/Mg Hydrox/Simethicone 30 ml Q6 PRN PO; Start 03/11/17 at 12:55; Stop 03/11/17 at 14:41; Status DC Ondansetron HCl Dose range: 4 mg to 8 mg Q4H PRN IVPUSH; Start 03/11/17 at 12: 55; Stop 03/11/17 at 14:40; Status DC Acetaminophen 975 mg Q6H PRN PO; Start 03/11/17 at 12:55; Stop 03/11/17 at 14: 41; Status DC Metoclopramide HCl 5 mg Q6H PRN IVPUSH; Start 03/11/17 at 14:35 Ondansetron HCl Dose Range: 4 mg to 8 mg Q4H PRN IVPUSH; Start 03/11/17 at 14: 35 Diphenhydramine HCl Dose Range: 12.5 mg... Q4H PRN IVPUSH; Start 03/11/17 at 14 :35; Stop 03/12/17 at 12:19; Status DC Hydromorphone HCl 1 mg Q2H PRN IVPUSH; Start 03/11/17 at 14:35 Scopolamine 1.5 mg Q72H PRN TOPICAL; Start 03/11/17 at 14:35 Haloperidol Lactate comfort care Q4 PRN IVPUSH; Start 03/12/17 at 12:15; Status UNV Scheduled Aspirin (Aspirin) 81 Mg Tablet 81 MG PO DAILY Calcium Carbonate (Tums) 500 Mg Tab.chew 1,500 MG PO TIDWM Calcium Carbonate (Tums) 500 Mg Tab.chew 1,000 MG PO HS Cephalexin (Keflex) 500 Mg Capsule 500 MG PO BID Levothyroxine (Levothyroxine) 150 Mcg Tablet 175 MCG PO DAILY Lidocaine/Prilocaine (Lidocaine-Prilocaine Cream) 30 Gm Cream..g. 1 APPLIC TOP AC dialysis to fistu Metoprolol Tartrate (Metoprolol Tartrate) 25 Mg Tablet 25 MG PO BID Sevelamer Carbonate (Renvela) 800 Mg Tablet 1,600 MG PO TIDWM Vitamin B Complex/Vit C (Elinor-Jaun Tablet) 1 Tab Tab 1 TAB PO DAILY Scheduled PRN Albuterol Sulfate (Ventolin HFA Inhaler) 200 Puff/18 Gm Inhaler 2 PUFF INH Q4 PRN PRN For Wheezing Lorazepam (Lorazepam) 1 Mg Tablet 1 MG PO before dialysis PRN PRN dialysis 30 minutes prior to dialysis Ropinirole (Ropinirole) 0.25 Mg Tablet 0.25-0.5 MG PO HS PRN PRN Restless Leg Objective Findings Exam Vital Sign - Last Date Time Temp Pulse Resp B/P Pulse Ox O2 Delivery O2 Flow Rate FiO2 03/12/17 05:40 36.4 71 18 70/47 98 Nasal Cannula 2.00 Intake and Output 03/11/17 03/11/17 03/12/17 Cumulative From/Thru 15:00 23:00 07:00 03/10/17 20:00 - 03/12/17 06:31 Intake Total 2000 ml 0 ml 0 ml 2000 ml Output Total 0 ml 0 ml 0 ml Balance 2000 ml 0 ml 0 ml 2000 ml Intake Oral 0 ml 0 ml 0 ml IV Total 2000 ml 2000 ml Output Urine Total 0 ml 0 ml 0 ml General: Minimally responsive, Other (denies pain or SOB but brow is furrowed) HEENT: Scleral Anicteric Heart: Regular Rate/Rhythm Lungs: Diminished (shallow- barely ) Abdomen: Soft Neuro: Other (barely arousable but denies pain) Lab/Diagnostics Lab and Imaging results reviewed in detail in EMR. CR 4.77 Patient/Family Conference Members Present Family Members Present patient and niece Medical Team Members Present? Melquiades MARTELL PC Discussion/Goals of Care Discussion FAMILY UNDERSTANDING OF DISEASE: Kelly Coleman who is her niece but has been her main support and coordinator states that due to her poor QOL over the past yr in discussion with patient's son-their decision is for comfort care. She feels this decision is in line with her recent progressive refusal of care, med noncompliance and deteriorating mental status with confusion etc. Pt had refused any alternative to care and support. she was a DNR/DNI DISEASE PROGRESSION/EVIDENCE OF DECLINE: SYMPTOM BURDEN: Pt denies pain or SOB GOALS: HOPES/WORRIES: Bailee requests comfort and feels that she is. Time spent Total time 50 minutes; >50% face to face with patient and/or family, providing counselling regarding plans and recommendations, and in care coordination with his/her medical teams. counseling with niece, coordination with nsg staff, med management I also spent an additional [ ] minutes counseling for advanced care planning with the patient/the patients family/the surrogate decision maker. copies to: Mercedes Brady MD, Deborah A MD March 12, 2017 12:38
[2017-03-12 14:05] VITALS: BP 77/44; PULSE 69; RESP 14; O2SAT 99
--- NOTE | 2017-03-12 14:29 | NUR ---
Palliative care note D/A: Case discussed today in [facility] and PC rounds. Post rounds, met with pt RN who indicates that pt bahman has expressed an interest in being part of discussion with PC. Phone call to bahman Bailee at [phone] [place] [address] [place] and can be here in a few minutes. Arrange for Bailee to meet with Dr. Kaur in consult at [phone]. P: Palliative care to follow. Lisa MAURO, [facility]. Addendum: 03/12/17 at 1435 by SULY BRITTON SS PC note amendment Msg left for Bailee in dialysis today regarding PC consult and comfort care. Lisa MAURO< [facility]
[2017-03-12] MEDS: HYDROmorphone 1 mg/mL Inj IVPUSH PRN ×2 (16:00→21:16)
--- NOTE | 2017-03-12 17:05 | NUR ---
Social Work- Initial Assessment Data: See Initial Assessment. Pt is a 86 year old female admitted 03/11/17 for hypotension, sepsis, N-STEMI, UTI per H&P. Palliative care is following pt. Per Palliative Care MD, pt may while hospitalized this weekend. Pt's insurance is [facility] and [facility] Supp. Pt's PCP is Mercedes Brady MD. Pt's DPOA is mirta Wheeler [phone]. Pt's re-admit risk score is 4. Pt is on comfort measures at this time. Pt is not able to participate in the assessment, JANELLE spoke with mirta Rivera [phone] by phone regarding discharge plan, SW role explained. Pt resides at [facility] in [place] where she was receiving assistance with ADLs from her [employer] caregiving. Per Miguel, pt has approximately 20 hours of caregiving through [employer]. Pt's caregiving is Kaylie Hagen, [employer] is Lida Paz. Pt has no history of HH or SNF. Pt has no LTC or VA benefits. Pt uses an electric chair at baseline. Pt does not drive. JANELLE spoke with Miguel regarding potential discharge planning, briefly discussed hospice options including private pay SNF, respite at assisted living, and home with private pay caregivers. Miguel is flying to [facility] Sat evening, eager to speak with JANELLE about hospice at that time. JANELLE discussed potential for [facility] on Wednesday, Miguel agreeable to this. SW to follow up with [facility] regarding this [facility]. Of Note: Per discussions with admissions at [facility], hospice will not be able to open until Wednesday afternoon. JANELLE spoke with Bailee, pt's niece, at bedside regarding hospice and potential discharge planning needs, SW role explained. Bailee is knowledgeable about hospice, agreeable to considering hospice options throughout pt's clinical course. SW to follow up with discharge planning needs including hospice coordination with Miguel and Bailee throughout this hospitalization. SW will continue to follow. Assessment: Pt who is comfort care at this time. Plan: Pt may this weekend in the hospital. Pt's DPOA Miguel and Bailee agreeable to hospice [facility] and further discharge planning needs as pt's clinical course progresses. SW to follow up with discharge planning needs including hospice coordination with Miguel and Bailee throughout this hospitalization. SW will continue to follow. Sully Esteban, DISTRICT MANAGER POSTAL SERVICE Addendum: 03/12/17 at 1715 by HEBER ESTEBAN SS Amended: Links added.
--- NOTE | 2017-03-12 18:15 | NUR ---
Turning Patient turned Q2H and for comfort this shift. Patient responsive to verbal cues, often with one or two word responses. Care is ongoing.
[2017-03-12 20:18] VITALS: BP 65/38; PULSE 67; RESP 12; O2SAT 100
[2017-03-13] MEDS: HYDROmorphone 1 mg/mL Inj IVPUSH PRN ×2 (00:07→06:14)
--- NOTE | 2017-03-13 02:12 | NUR ---
pain - respiratory patient has furrowed brow at times. responds at times to tactile stimuli breathing irregular. 93% 3 liters nc for comfort. medicated with dilaudid 1/2mg slow iv push as documented patient turned and repositioned per comfort. care ongoing
[2017-03-13 08:58] VITALS: PULSE 59; RESP 8; O2SAT 97
--- NOTE | 2017-03-13 12:30 | NUR ---
Pt. at about 1230, family was made aware, MD Le, and appropriate personal where called at this time following the authorization for release of body form. Niece and grandniece are at Pts bedside, at this time awaiting on sons arrival from out of state to finish the rest of the authorization for release of body form.
--- NOTE | 2017-03-13 13:09 | PCM.DC.MED ---
Discharge Summary Date of Service March 13, 2017 Dates of Hospitalization Date of Hospital Admission March 11, 2017 at 12:30 Date of Discharge: March 13, 2017 Providers: Admitting Physician: William Canales DO Primary Care Physician: Mercedes Brady MD Attending Physician: William Canales DO Diagnosis at Time of Discharge Diagnosis at Time of Discharge Altered mental status, possibly secondary to missed dialysis sessions albeit no significant x-ray abnormalities but worsened with likely underlying pulmonary edema causing hypoxia ESRD on hemodialysis High cholesterol Thyroid disease GERD CHF HTN COPD Restless leg syndrome Consultations RUSTICAL CARE CARDIOLOGY CONSULTATION: REASON FOR CONSULT: ED physician, Dr. Manuel, asked me to see this patient regarding hypotension, fall, altered mental status. I went to the ED and saw the patient. CHIEF COMPLAINT: Had a fall. The patient is slowly responding, however, she is confused. The majority of the history I got through the current chart, reviewing old records, talking to the niece as well as the ED physician. PRESENT HISTORY: This 86-year-old pleasant female, who has a history of end-stage renal disease on hemodialysis three times a week, status post left heart catheterization in November 2014. At that time, she did not have any significant left main, LAD or circ disease with 30%-40% mid RCA disease, LV ejection fraction 55%-60% with [id number]-[id number]-[id number] MR based on echocardiogram done February 2015, history of essential hypertension, persistent tobacco abuse, COPD, hypothyroidism, GERD, restless legs syndrome, history of CHF was brought to the ED because of above-mentioned chief complaint. According to the niece, the patient missed dialysis a couple of times. However, yesterday she had dialysis. She was supposed to have dialysis today as well. This morning, when the caregiver went to her house, she found her on the floor. According to the patient, she fell from the bed. She denies any active chest pain or preceding palpitation or dizziness or cardiovascular symptoms. However, that history is not very reliable. In the ED the patient was found to be hypotensive. She was started on IV fluids. Cardiology consult was sought. At present, she is in emergency department. She is kind of sleeping but she is responding to commands slowly. However, she appears to be confused. She is not having any active chest pain. No obvious fever, chills. According to the nurse, her urine was very turbid and looks like she has a urinary tract infection. PAST MEDICAL HISTORY: 1. 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 2. End-stage renal disease on hemodialysis. 3. Essential hypertension. 4. Hyperlipidemia. 5. GERD. 6. History of CHF. 7. COPD. 8. Tobacco abuse. 9. Restless legs syndrome. 10. Hypothyroidism. 11. Right AV fistula. PAST SURGICAL HISTORY: 1. Cholecystectomy. 2. Right AV fistula. ALLERGIES: The patient is allergic to ROLAND INHIBITOR with anaphylaxis, SULFA, AMLODIPINE, CODEINE, MORPHINE, HYDROCHLOROTHIAZIDE, SULFADIAZINE. MEDICATION AT HOME: 1. Aspirin 81 mg daily. 2. Calcium carbonate. 3. Synthroid 150 mcg tablet, 175 mcg daily. 4. Metoprolol tartrate 25 mg b.i.d. 5. Renvela 1600 mg t.i.d. 6. Vitamin B complex. SOCIAL HISTORY: The patient is a chronic smoker. FAMILY HISTORY: Noncontributory. REVIEW OF SYSTEMS: I tried to obtain 10 point review of systems but the validity is not very reliable as she appears to be confused. PHYSICAL EXAMINATION: Blood pressure 69/35, heart rate 63, oxygen saturation on 2 L 98%. HEENT: No significant anemia or jaundice. Neck: Neck vein appears to be engorged. Chest: Bilateral diffuse rhonchi as well as some crackles at the bases. CVS: S1 appears normal. P2 appears prominent. No obvious S3-S4. Grade 2/6 ejection systolic murmur at the base. Abdomen appears to be obese. During my physical examination, I found tenderness in middle of the abdomen. It is not a rebound tenderness. Extremities: The patient has diffuse erythematous changes. 1-2+ pedal edema. Feeble distal pulses. She has a blister on the anterior aspect of left thigh and some rashes on her back on the left side. SR. OPERATIONS MANAGER: As stated above. Vascular: As stated above. However, at present, no obvious critical limb ischemia. LABORATORIES: WBC 6.1, hemoglobin 11.4, platelets 95, polymorphs 82.8. INR 1.05. Sodium 135, potassium 3.5, BUN 28, creatinine 4.77. Bilirubin, AST, ALT normal. Troponin T 0.397. However, the patient has chronically elevated troponin. In November of 2014, it was 0.252. IMAGING: The patient has CT scan of her head which did not reveal any acute process. On x-ray chest, mild cardiomegaly. Aortic atherosclerosis. Moderate vascular congestion. EKG today revealed sinus rhythm with LVH with left anterior fascicular block with some nonspecific ST-T changes and QTc 481 msec which has unchanged from previous EKG. The patient had carotid Doppler in November 2010. 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 ASSESSMENT/PLAN: Profound hypotension. In the past she did not have any critical coronary artery disease. LV function was preserved. On my physical examination, she does not have any very cold clammy extremities. Clinically, no obvious pulsus paradoxus. With low blood pressure, I will expect some tachycardia. However, she is not tachycardic. Clinically, she is having bilateral wheezing. She has bilateral basal crepitations. At this point of time, she will need workup to rule out cardiac etiology as well as infectious etiology and endocrine abnormality like adrenal insufficiency. I had a long discussion with the patient's niece who is at bedside and the ED physician as well. We discussed about above-mentioned workup including echocardiogram, vasopressor support, etc. However, at present, niece told us that the patient's code status is DNR. She is talking to her brother as well who is in [place] who is the son of the patient. They are thinking about comfort care. If they decide to go forward, will recommend echocardiogram in consideration of Levophed and close hemodynamic monitoring along with serial CPK, troponin. On the EKG, I do not see any new EKG changes suggestive of significant ischemia or infarction. However, troponin abnormal which is chronically elevated in the face of end-stage renal disease. With an echocardiogram, we would also like to rule out pericardial pathology. Niece understands. However, at present, she is not interested to go forward. Thanks for the cardiology consult. TOTAL TIME SPENT: For this critical care consult including reviewing old records about 70 minutes. Dorian Argueta MD 03/11/17 1219 Pt History History of Present Illness 86-year-old female with significant history of tobacco abuse, end-stage renal disease with history of noncompliance with dialysis sessions missing her last 2 , CHF, COPD and hypertension presenting to the ER via EMS with altered mental status being found by caregiver on the floor with reports of being on the floor for 1 hour. Recent has not wanted to go dialysis appointments of late when discussing with her niece. Patient's first listed power of global manager is her son in [place]. Phone number [phone]. Patient was found to be hypotensive in the ER with systolics in the 60s, as she was consulted and discussions were held regarding goals of care, family decided patient should be comfort care and was admitted as such. No significant EKG findings for acute ischemia were noted, patient was taking Ativan at home prior to ground level fall at home. Upon interview, niece reaffirmed desire for comfort care and stated she is in agreement with the other POA, Terrell. Past Medical History Significant PMH Noted: 1. 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 2. End-stage renal disease on hemodialysis. 3. Essential hypertension. 4. Hyperlipidemia. 5. GERD. 6. History of CHF. 7. COPD. 8. Tobacco abuse. 9. Restless legs syndrome. 10. Hypothyroidism. 11. Right AV fistula. PAST SURGICAL HISTORY: 1. Cholecystectomy. 2. Right AV fistula. ALLERGIES: The patient is allergic to ROLAND INHIBITOR with anaphylaxis, SULFA, AMLODIPINE, CODEINE, MORPHINE, HYDROCHLOROTHIAZIDE, SULFADIAZINE. SOCIAL HISTORY: The patient is a chronic smoker. FAMILY HISTORY: Noncontributory. Medications Current Medications: Current Medications Al Hydrox/Mg Hydrox/Simethicone 30 ml Q6 PRN PO; Start 03/11/17 at 12:55; Stop 03/11/17 at 14:41; Status DC Ondansetron HCl Dose range: 4 mg to 8 mg Q4H PRN IVPUSH; Start 03/11/17 at 12: 55; Stop 03/11/17 at 14:40; Status DC Acetaminophen 975 mg Q6H PRN PO; Start 03/11/17 at 12:55; Stop 03/11/17 at 14: 41; Status DC Metoclopramide HCl 5 mg Q6H PRN IVPUSH; Start 03/11/17 at 14:35 Ondansetron HCl Dose Range: 4 mg to 8 mg Q4H PRN IVPUSH; Start 03/11/17 at 14: 35 Diphenhydramine HCl Dose Range: 12.5 mg... Q4H PRN IVPUSH; Start 03/11/17 at 14 :35 Hydromorphone HCl 1 mg Q2H PRN IVPUSH; Start 03/11/17 at 14:35 Scopolamine 1.5 mg Q72H PRN TOPICAL; Start 03/11/17 at 14:35 Scheduled Aspirin (Aspirin) 81 Mg Tablet 81 MG PO DAILY Calcium Carbonate (Tums) 500 Mg Tab.chew 1,500 MG PO TIDWM Calcium Carbonate (Tums) 500 Mg Tab.chew 1,000 MG PO HS Cephalexin (Keflex) 500 Mg Capsule 500 MG PO BID Levothyroxine (Levothyroxine) 150 Mcg Tablet 175 MCG PO DAILY Lidocaine/Prilocaine (Lidocaine-Prilocaine Cream) 30 Gm Cream..g. 1 APPLIC TOP AC dialysis to fistu Metoprolol Tartrate (Metoprolol Tartrate) 25 Mg Tablet 25 MG PO BID Sevelamer Carbonate (Renvela) 800 Mg Tablet 1,600 MG PO TIDWM Vitamin B Complex/Vit C (Elinor-Jaun Tablet) 1 Tab Tab 1 TAB PO DAILY Scheduled PRN Albuterol Sulfate (Ventolin HFA Inhaler) 200 Puff/18 Gm Inhaler 2 PUFF INH Q4 PRN PRN For Wheezing Lorazepam (Lorazepam) 1 Mg Tablet 1 MG PO before dialysis PRN PRN dialysis 30 minutes prior to dialysis Ropinirole (Ropinirole) 0.25 Mg Tablet 0.25-0.5 MG PO HS PRN PRN Restless Leg Objective Findings Exam Vital Sign - Last Date Time Temp Pulse Resp B/P Pulse Ox O2 Delivery O2 Flow Rate FiO2 03/12/17 05:40 36.4 71 18 70/47 98 Nasal Cannula 2.00 Intake and Output 03/11/17 03/11/17 03/12/17 Cumulative From/Thru 15:00 23:00 07:00 03/10/17 20:00 - 03/12/17 06:31 Intake Total 2000 ml 0 ml 0 ml 2000 ml Output Total 0 ml 0 ml 0 ml Balance 2000 ml 0 ml 0 ml 2000 ml Intake Oral 0 ml 0 ml 0 ml IV Total 2000 ml 2000 ml Output Urine Total 0 ml 0 ml 0 ml Lab/Diagnostics Lab and Imaging results reviewed in detail in EMR. Time spent Total time [ ] minutes; >50% face to face with patient and/or family, providing counselling regarding plans and recommendations, and in care coordination with his/her medical teams. I also spent an additional [ ] minutes counseling for advanced care planning with the patient/the patients family/the surrogate decision maker. Saskia Pedroza MD March 12, 2017 08:32 Procedures XRay, CTs & MRIs Negative head CT Chest ray with evidence of pulmonary vascular congestion ECG 12 Lead Sinus rhythm, No acute ischemia, left axis deviation with early repolarization noted Cardiac Echo Impression Deferred Brief History 86-year-old female with significant history of tobacco abuse, end-stage renal disease with history of noncompliance with dialysis sessions missing her last 2 , CHF, COPD and hypertension presenting to the ER via EMS with altered mental status being found by caregiver on the floor with reports of being on the floor for 1 hour. Recent has not wanted to go dialysis appointments of late when discussing with her niece. Patient's first listed power of global manager is her son in [place]. Phone number [phone]. Patient was found to be hypotensive in the ER with systolics in the 60s, as she was consulted and discussions were held regarding goals of care, family decided patient should be comfort care and was admitted as such. No significant EKG findings for acute ischemia were noted, patient was taking Ativan at home prior to ground level fall at home. Upon interview, niece reaffirmed desire for comfort care and stated she is in agreement with the other POATerrell. History and discussion with Kelly Coleman her niece who has been her main support.She has a CG who takes her to dialysis 3 days a week. Gradual decline in status over the last 1-2 yrs but more acutely in the past 3 months. She has had increasing confusion- out on scooter to [employer] in middle of the night, one time out in her underwear, refusing Meals on Wheels and eating potato chips soda and cheezwiz. She continues to smoke and declines ever going to facility due to restrictions on her just staying in bed watching TV and smoking. She has been spending more time in bed. She has been missing dialysis- for a full week 2 wks ago-no SOB developing. Niece would describe her quality of life as very poor at this point. Having incont of bladder and bowel but refuses depends and doesn't recognize the disaster of her environment. Hospital Course On exam today she is hypotensive and unresponsive. Heart is RRR with a 3/6 MANUEL. There is no edema. Altered mental status, possibly secondary to missed dialysis sessions albeit no significant x-ray abnormalities but worsened with likely underlying pulmonary edema causing hypoxia plus or minus aspiration and exacerbated by hypotension -Morphine, oxygen, scopolamine, Ativan when necessary Chronic medical conditions: ESRD on hemodialysis High cholesterol Thyroid disease GERD CHF HTN COPD Restless leg syndrome CODE STATUS DO NOT RESUSCITATE Exam Vital Signs (Last) Date Time Temp Pulse Resp B/P Pulse Ox O2 Delivery O2 Flow Rate FiO2 03/13/17 09:00 Supplement Oxygen 03/13/17 08:58 36.4 59 8 97 3.00 03/12/17 20:18 65/38 Test 03/11/17 09:30 03/11/17 10:51 03/11/17 11:10 03/11/17 17:35 White Blood Count 6.1th/mm3 (3.8-10.1) Red Blood Count 3.53mil/mm3 (3.90-5.20) Mean Corpuscular Volume 98.0fL (81-100) Mean Corpuscular Hemoglobin 32.3pg (27.0-35.0) Mean Corpuscular Hemoglobin Concent 32.9% (32.0-37.0) Red Cell Distribution Width 16.6% (12.3-15.4) Platelet Count 95bil/L (150-400) Neutrophils (%) (Auto) 82.8% (40-74) Lymphocytes (%) (Auto) 9.0% (14-46) Monocytes (%) (Auto) 6.9% (4-12) Eosinophils (%) (Auto) 0.3% (0-5) Basophils (%) (Auto) 0.3% (0-3) Prothrombin Time 11.3sec (8.1-12.5) Prothromb Time International Ratio 1.05ratio Sodium Level 135mEq/L (134-144) Potassium Level 3.5mEq/L (3.5-5.2) Chloride Level 94mEq/L (97-108) Carbon Dioxide Level 19mmol/L (18-29) Blood Urea Nitrogen 28mg/dL (8-27) Creatinine 4.77mg/dL (0.57-1.00) Estimat Glomerular Filtration Rate 12mL/min (>59) Glucose Level 97mg/dL (60-99) Lactic Acid Level 1.5mmol/L (0.4-2.0) Calcium Level 7.8mg/dL (8.5-10.1) Magnesium Level 1.5mg/dL (1.6-2.6) Total Bilirubin 0.6mg/dL (0.0-1.2) Aspartate Amino Transf (AST/SGOT) 13U/L (0-50) Alanine Aminotransferase (ALT/SGPT) 8U/L (0-32) Alkaline Phosphatase 57U/L (25-165) Troponin T 0.397ug/L (0.0-0.011) Total Protein 6.5g/dL (6.4-8.4) Albumin 3.5g/dL (3.4-5.0) Thyroid Stimulating Hormone (TSH) 39.140uIU/mL (0.450-4.500) Urine Color Yellow (YELLOW) Urine Appearance Turbid (CLEAR,HAZY) Urine pH 8.0 (5.0-8.0) Urine Specific Winnie 1.020 (1.003-1.035) Urine Protein 300mg/dL (NEG,TRACE) Urine Glucose (UA) Negativemg/dL (NEGATIVE) Urine Ketones Negativemg/dL (NEGATIVE) Urine Occult Blood Large (NEGATIVE) Urine Nitrite Positive (NEGATIVE) Urine Bilirubin Negative (NEGATIVE) Urine Urobilinogen Normalmg/dL (NORMAL) Urine Leukocyte Esterase Moderate (NEGATIVE) Urine RBC 11-50/hpf (0-2) Urine WBC Packed/hpf (0-5) Urine Epithelial Cells Occasional/hpf (NONE-MOD) Urine Crystals None seen (NONE SEEN) Urine Bacteria Moderate/hpf (NONE-FEW) Urine Hyaline Casts None/lpf (NONE) Urine Granular Casts None seen (NONE SEEN) Urine Waxy Casts None seen (NONE SEEN) Urine Red Blood Cell Casts None seen (NONE SEEN) Urine White Blood Cell Casts None seen (NONE SEEN) Urine Mucus None seen (None Seen) Urine Trichomonas None seen (NONE SEEN) Urine Yeast None (NONE SEEN) Urinalysis Comment None Urine Culture Reflexed Indicated Hemoglobin 11.3g/dL (12.0-15.6) Hematocrit 34.8% (35.0-46.0) Activated Partial Thromboplast Time 25.2sec (22.8-33.0) Discharge Medications Discharge Medications Aspirin (Aspirin) 81 Mg Tablet 81 MG PO DAILY (Reported) Calcium Carbonate (Tums) 500 Mg Tab.chew 1,500 MG PO TIDWM (Reported) Calcium Carbonate (Tums) 500 Mg Tab.chew 1,000 MG PO HS (Reported) Cephalexin (Keflex) 500 Mg Capsule 500 MG PO BID Prescribed by: TERE COSTA, Levothyroxine (Levothyroxine) 150 Mcg Tablet 175 MCG PO DAILY Prescribed by: TERE COSTA, Lidocaine/Prilocaine (Lidocaine-Prilocaine Cream) 30 Gm Cream..g. 1 APPLIC TOP AC dialysis to fistu (Reported) Metoprolol Tartrate (Metoprolol Tartrate) 25 Mg Tablet 25 MG PO BID (Reported) Sevelamer Carbonate (Renvela) 800 Mg Tablet 1,600 MG PO TIDWM (Reported) Vitamin B Complex/Vit C (Elinor-Jaun Tablet) 1 Tab Tab 1 TAB PO DAILY (Reported) As needed Albuterol Sulfate (Ventolin HFA Inhaler) 200 Puff/18 Gm Inhaler 2 PUFF INH Q4 PRN PRN For Wheezing (Reported) Lorazepam (Lorazepam) 1 Mg Tablet 1 MG PO before dialysis PRN PRN dialysis ( Reported) 30 minutes prior to dialysis Ropinirole (Ropinirole) 0.25 Mg Tablet 0.25-0.5 MG PO HS PRN PRN Restless Leg ( Reported) Followup Plan Disposition: She had today and her body will be released to the home. Elgin Richardson MD March 13, 2017 13:09 Followup Plan Disposition: She had today and her body will be released to the home. Elgin Richardson MD March 13, 2017 13:09
--- NOTE | 2017-03-13 18:13 | NUR ---
[place] [facility] [place] the [facility] at about 1750. Son who was out of state was able to se Pt. one last time. Pts. son took ring home that was on Pts. left index finger.
== END 2017-03-13 12:00 | disposition expired | DRG 682 ==
LOC: EDUNIT# 08:47 → SED 08:47 → EDBD 08:47 → OSC 12:30
PROVIDERS: ADMIT Internal Medicine; ATTEND Internal Medicine
DX: I13.11 Hypertensive heart and chronic kidney disease without heart failure, with stage 5 chronic kidney disease, or end stage renal disease (principal); N18.6 End stage renal disease; I95.9 Hypotension, unspecified; K21.9 Gastro-esophageal reflux disease without esophagitis; J44.9 Chronic obstructive pulmonary disease, unspecified; G25.81 Restless legs syndrome; E78.00 Pure hypercholesterolemia, unspecified; F17.210 Nicotine dependence, cigarettes, uncomplicated; E03.9 Hypothyroidism, unspecified; Z51.5 Encounter for palliative care; Z66 Do not resuscitate; Z79.82 Long term (current) use of aspirin; Z91.15 Patient's noncompliance with renal dialysis; Z99.2 Dependence on renal dialysis